=== PATIENT | male | born 1995 | race Caucasian/White ===

== ENCOUNTER 2023-09-11 22:56 | Emergency (ER) | payer OTHER ==
[~2023-09-11] VITALS: Ht 167.6 cm; Wt 70.0 kg
[2023-09-12 00:06] VITALS: O2SAT 100
[2023-09-12 01:15] VITALS: TEMP 98.4
[2023-09-12] MEDS ORDERED: ACETAMINOPHEN 325MG TABLET PO ONE (01:15)
[2023-09-12] MEDS ORDERED: KETOROLAC 60MG/2ML VIAL IM ONE ×2 (01:15→01:45)
[2023-09-12 01:45] VITALS: BP 121/84; PULSE 103; RESP 18
[2023-09-12] MEDS ORDERED: IBUP-2028 MT (01:46)
[2023-09-12] MEDS ORDERED: DOXY100T2 MT (01:46)
[2023-09-12] MEDS ORDERED: MICO85PO13 TOP (01:46)
== END 2023-09-12 02:43 | disposition home or self-care (01) ==
LOC: ER 23:23
DX: B35.3 Tinea pedis (principal); L03.119 Cellulitis of unspecified part of limb
CPT/HCPCS: 99283; 96372; J1885

== ENCOUNTER 2023-09-12 04:46 | Emergency (ER) | payer OTHER ==
[~2023-09-12] VITALS: Ht 167.6 cm; Wt 67.0 kg
[~2023-09-12 04:46] MED LIST: DOXY100T2 MT; IBUP-2028 MT; MICO85PO13 TOP
[2023-09-12 04:59] VITALS: BP 138/91; PULSE 98; RESP 18; TEMP 98.5; O2SAT 100
== END 2023-09-12 09:09 | disposition left against medical advice (07) ==
LOC: ER 05:06
DX: F99 Mental disorder, not otherwise specified (principal); Z53.21 Procedure and treatment not carried out due to patient leaving prior to being seen by health care provider
CPT/HCPCS: 99281